=== PATIENT | female | born 1945 | race Caucasian/White ===

== ENCOUNTER → 2017-04-22 | Outpatient (CLI) | payer MEDICARE ==
[~2017-04-22] MED LIST: ASPIRIN81 M2 PO; ATENOLOL PO; ATENOLOL50 MG PO; CALCIUM + D 6001 TA1 PO; COZAAR100 MG PO; EVISTA60 MG PO; FISH OIL 1,0001 CA2 PO; OMEPRAZOLE20 M1 PO; PREVACID PO; RESTASIS32 EA OU
--- NOTE | ~2017-04-22 | ST ---
Unit #: [id number] #: [id number] Patient: AMRIT MOORE [id number] [address] [address] [id number] O MR#: [id number] NAME: AMRIT MOORE : 1945 SEX: F STUDY DATE/TIME: UNIT: [facility] ROOM: STUDY DESCRIPTION: Stress Test Attending Physician: Manisha Enciso A.P.R.N. Referring Physician: Manisha Enciso A.P.R.N. Primary Care Physician: Manisha Enciso A.P.R.N. CARDIOLOGY REPORT EXAM Exercise Cardiolite Stress Test DESCRIPTION Baseline EKG - normal sinus rhythm with ventricular rate 66 beats/minute, left atrial abnormality, questionable Q wave in V1 and low voltage in V2. The patient walked on the treadmill for 5 minutes 30 seconds utilizing Anupam protocol achieving a workload of 6.0 METs. 91% of maximum target heart rate achieved at 134 beats/minute with a hypertensive blood pressure response of 192/78 mmHg. EKG during the test showed a 1.[address] depression in inferior lateral leads which returned to baseline at the recovery phase. The patient had no complaints of chest pain, palpitations or dizziness. Had increased shortness of breath and fatigueness which resolved in recovery phase. IMPRESSION 1. Functional class III with a workload of 6.0 METs. 2. Patient walked for 5 minutes 30 seconds achieving 91% of maximum target heart rate at 134 beats/minute with a hypertensive blood pressure response of 192/78 mmHg. 3. EKG during the test showed a 1.[address] depression in inferior lateral leads with returning to near baseline at the end of recovery phase. 4. The patient had no complaints of chest pain, palpitations or dizziness. Had increased shortness of breath and fatigueness which resolved in recovery phase. 5. It was noted that patient's blood pressure decreased down to 166/78 mmHg at the end of recovery phase. 6. Cardiolite was injected at maximum target heart rate. Radionuclide test pending. Please correlate with nuclear images. Dictated by... Venancio TariqPKatina for Pietro Hawk/df Unit #: [id number] #: [id number] Patient: AMRIT MOORE TD: 04/22/2017 11:40 JOB #: [id number] CARDIOLOGY REPORT Page 1 of 1 X Danuta Ivory APRN CARDIOLOGY REPORT
--- NOTE | ~2017-04-22 | TH ---
Unit #: [id number] #: [id number] Patient: AMRIT MOORE [id number] [address] [address] [id number] O MR#: [id number] NAME: AMRIT MOORE : 1945 SEX: F STUDY DATE/TIME: 04/22/2017 UNIT: [facility] ROOM: STUDY DESCRIPTION: Cardiolite imaging Attending Physician: Manisha Enciso A.P.R.N. Referring Physician: Manisha Enciso A.P.R.N. Primary Care Physician: Manisha Enciso A.P.R.N. CARDIOLOGY REPORT PROCEDURE This 72-year-old patient was exercised on a treadmill and at the peak of exercise the patient was injected with 30.6 mCi of technetium 99m Cardiolite. Images were obtained according to the standard SPECT protocol. For rest images 10.27 mCi of Cardiolite were injected and images were reviewed in both phases. FINDINGS Overall study quality is excellent. Left ventricular cavity size is normal in both images. There is no lung activity. Right ventricle is normal. Rotating raw data showed no significant artifact, soft tissue attenuation or GI uptake. Review of the SPECT images showed normal homogeneous radiotracer concentration throughout the myocardium in both stress and rest images. Gated images showed normal left ventricular wall thickening and wall motion with an estimated left ventricular ejection fraction of 71%. IMPRESSION 1. Myocardial perfusion imaging is normal. 2. No evidence of ischemia or infarct. 3. Normal left ventricular dimensions. 4. Normal systolic left ventricular function with an estimated left ventricular ejection fraction of 71%. Dictated by... Pietro Hawk/jessie TD: 04/22/2017 13:29 JOB #: [id number] Unit #: [id number] #: [id number] Patient: AMRIT MOORE CARDIOLOGY REPORT Page 1 of 1 X Blanka Cavazos MD CARDIOLOGY REPORT
== END | disposition home or self-care (01) ==
LOC: CNUC 08:36
DX: R07.89 Other chest pain (principal); I10 Essential (primary) hypertension; R94.39 Abnormal result of other cardiovascular function study
CPT/HCPCS: 78452; 93017; 93306; A9500

== ENCOUNTER → 2017-06-30 | Outpatient (CLI) | payer MEDICARE ==
--- NOTE | ~2017-06-30 | US128 ---
[id number] [place] [address] [place] [address] [place], [place] [address] [id number] O MR#: [id number] Acc #: [id number] NAME: AMRIT MOORE : 1945 SEX: F STUDY DATE/TIME: 06/30/2017 13:02 UNIT: [facility] ROOM: STUDY DESCRIPTION: Thyroid Attending Physician: Manisha Enciso A.P.R.N. Referring Physician: Manisha Enciso A.P.R.N. Ordering Physician: Manisha Enciso A.P.R.N. Primary Care Physician: Manisha Enciso A.P.R.N. MEDICAL IMAGING REPORT This report is preliminary unless electronic signature is present EXAM Thyroid ultrasound 06/30/2017 HISTORY Enlarged thyroid on physical examination 06/25/2017. Neck and throat fullness. Hoarseness. FINDINGS The right thyroid lobe measured 5 cm x 1.4 cm x 1.3 cm, while the left lobe measured 3.5 cm x 1.5 cm x 1.5 cm. The isthmus measured 4 mm in the AP direction. There is a solitary 7 mm nodule located in the lower pole of the left thyroid lobe. The thyroid is otherwise homogeneous in echotexture. There are no masses extrinsic to the thyroid. Normal blood flow is seen throughout both thyroid lobes. IMPRESSION Solitary 7 mm solid nodule lower-pole left thyroid lobe. Otherwise, negative thyroid ultrasound. Dictated by... Matt Nunes M.D. THIS IS AN ELECTRONICALLY VERIFIED REPORT Matt Nunes M.D. at 07/01/2017 10:21 AM CONCHITA/ani TD: 06/30/2017 23:30 JOB #: [id number] MEDICAL IMAGING REPORT Page 1 of 1 COPY
== END | disposition home or self-care (01) ==
LOC: CWCC 12:52
DX: R09.89 Other specified symptoms and signs involving the circulatory and respiratory systems (principal); R49.0 Dysphonia; E04.1 Nontoxic single thyroid nodule
CPT/HCPCS: 76536